=== PATIENT | female | born 1935 | race Caucasian/White ===

== ENCOUNTER 2020-06-16 13:22 | Outpatient (CLI) | payer MEDICARE, OTHER, SELFPAY ==
--- NOTE | 2020-06-16 13:29 | ECG_ITS ---
Measurements Intervals [place] Rate: 61 P: 43 [place]: 128 QRS: 24 QRSD: 109 T: 50 QT: 413 QTc: 419 Interpretive Statements SINUS RHYTHM DELAYED PRECORDIAL R/S TRANSITION BORDERLINE T WAVE ABNORMALITY- ANTERIOR LEADS BASELINE ARTIFACT- I, II, III, AVR, AVL, AVF, V1-V6 BORDERLINE ECG Electronically Signed On 06-16-2020 14:01:08 CDT by Davy Benton D.O.
[2020-06-16 13:55] LABS: Basophils Absolute Auto 0.1 K/mm3 (0.0-0.1); Basophils Percent Auto 0.8 % (0.2-1.2); Eosinophils Absolute Auto 0.1 K/mm3 (0-0.3); Eosinophils Percent Auto 1.7 % (0-4.4); Hematocrit 40.9 % (37.0-47.0); Immature Granulocyte Absolute 0.05 K/mm3 (0.00-0.031); Immature Granulocyte Percent A 0.7 % (0-0.5); Lymphocytes Absolute Auto 1.66 K/mm3 (0.9-3.2); Lymphocytes Percent Auto 23.4 % (18.3-44.2); Mean Corpuscular HGB Conc 31.8 g/dl (32-36); Mean Corpuscular Hemoglobin 30.8 pg (26-34); Mean Corpuscular Volume 96.9 fl (80-100); Mean Platelet Volume 9.8 fl (7.4-10.4); Monocytes Absolute Auto 0.8 K/mm3 (0.1-0.6); Monocytes Percent Auto 11.1 % (2.6-8.5); Neutrophils Absolute Auto 4.4 K/mm3 (1.3-6.7); Neutrophils Percent Auto 62.3 % (45.5-73.1); Platelet Count Result 240 k/mm3 (150-375); Red Blood Count 4.22 M/mm3 (4.2-5.4); Red Cell Distribution Width 13.5 % (11.5-14.5); White Blood Count 7.1 K/mm3 (4.5-10.0)
[2020-06-16 14:02] LABS: INR 0.9; Prothrombin Time 12.2 Seconds (11.1-14.7)
[2020-06-16 14:03] LABS: Partial Thromboplastin Time 27.6 SECONDS (22.3-36.8)
[2020-06-16 14:05] LABS: Alanine Aminotransferase 10 U/L (4-35); Albumin Level 3.9 g/dL (3.5-5.1); Alkaline Phosphatase 72 U/L (38-126); Anion Gap 2 mmol/L (8-16); Aspartate Amino Transferase 21 U/L (14-36); Bilirubin,Total 0.3 mg/dL (0.2-1.3); Blood Urea Nitrogen 20 mg/dL (7-17); Calcium 9.3 mg/dL (8.4-10.2); Carbon Dioxide 35 mmol/L (22-30); Chloride 104 mmol/L (98-107); Estimated Glomerular Filt Rate > 60; Glucose 100 mg/dL (65-105); Potassium 3.9 mmol/L (3.4-5.0); Sodium 141 mmol/L (137-145)
== END 2020-06-16 13:23 | disposition home or self-care (01) ==
PROVIDERS: PCP Internal Medicine; Visit Provider Urology
DX: N81.4 Uterovaginal prolapse, unspecified (principal); I10 Essential (primary) hypertension; Z01.818 Encounter for other preprocedural examination; R94.31 Abnormal electrocardiogram [ECG] [EKG]
CPT/HCPCS: 36415; 80053; 85025; 85610; 85730; 86850; 86900; 86901; 87086; 93005

== ENCOUNTER 2020-06-24 00:49 | Outpatient (CLI) | payer MEDICARE, OTHER, SELFPAY ==
[2020-06-25 03:00] LABS: SARS-CoV-2 RNA PCR Negative
== END 2020-06-24 00:50 | disposition home or self-care (01) ==
LOC: ANHCOVIDDT 00:49
PROVIDERS: PCP Internal Medicine; Visit Provider Urology
DX: Z01.812 Encounter for preprocedural laboratory examination (principal); Z20.828 Contact with and (suspected) exposure to other viral communicable diseases
CPT/HCPCS: 87635; C9803; U0003

== ENCOUNTER 2020-06-26 01:21 | Day surgery (SDC) | payer MEDICARE, OTHER, SELFPAY ==
[2020-06-12 14:20] VITALS: BMI 25.7
--- NOTE | 2020-06-21 11:00 | PM.IMHP ---
H&P: HPI History of Present Illness Date/Time: 06/21/20 11:00 Chief complaint: uterine prolapse Narrative: Soledad Parra is a 85 year old female with uterine prolpase Review of Systems Review of Systems: All systems reviewed & are unremarkable except as noted in HPI and below PMFSH Social History Social History Smoking packs per day: 1 Smoking cigarettes per day: 20.0 Years smoked: 17 Smoking pack-years: 17.00 Smoking status: Former smoker Tobacco type: cigarettes Smoking end date: 08/21/89 Spiritual care concerns: No Meds Home Medications and Allergies Home Medications Medication Instructions Recorded Confirmed Type cholecalciferol (vitamin D3) 25 mcg PO DAILY 06/12/20 06/12/20 History denosumab [Prolia] 60 mg SUBCUT [id number] 06/12/20 06/12/20 History levothyroxine 25 mcg PO QAM 06/12/20 06/12/20 History metoprolol succinate 25 mg PO QAM 06/12/20 06/12/20 History Allergies Allergy/AdvReac Type Severity Reaction Status Date / Time Quinolones Allergy Intermediate SENSITIVITY/SEVERE Verified 06/12/20 14:08 NAUSEA/VOMITING/DIARRHEA amlodipine Allergy Unknown UPSET Verified 06/12/20 14:09 STOMACH Exam Const: General: cooperative and healthy appearing HENMT: Head: normal to inspection Mouth: Yes Normal oral and palatal mucosa present Eyes: General: appearance normal, both eyes and all related structures Resp: Effort & Inspection: normal respiratory effort and able to speak in complete sentences : Bimanual exam- vagina & uterus: Uterus displaced (POP +5) Skin: General skin exam: normal color Assessment and Plan Assessment and plan (1) Uterine prolapse: Code(s): N81.4 - Uterovaginal prolapse, unspecified Status: Acute Assessment and Plan: Colpocleisis
--- NOTE | 2020-06-25 10:36 | P.PNAN_ITS ---
Anes - Initial Pre Proc Eval Procedure: Operation Date: 06/26/20 10:30 Proposed Procedures p Colpocleisis, Possible Urethral Sling - Camilo Mcneil MD Date/Time: 06/25/20 10:36 Surgeon: Camilo Mcneil MD Pre Op Diagnosis: uterine prolapse Patient Data Age: 85 Gender: F Height: 1.57 m Weight: 63.65 kg Allergies Allergy/AdvReac Type Severity Reaction Status Date / Time Quinolones Allergy Intermediate SENSITIVITY/SEVERE Verified 06/12/20 14:08 NAUSEA/VOMITING/DIARRHEA amlodipine Allergy Unknown UPSET Verified 06/12/20 14:09 STOMACH Home Medications Medication Instructions Recorded Confirmed Type cholecalciferol (vitamin D3) 25 mcg PO DAILY 06/12/20 06/12/20 History denosumab [Prolia] 60 mg SUBCUT [id number] 06/12/20 06/12/20 History levothyroxine 25 mcg PO QAM 06/12/20 06/12/20 History metoprolol succinate 25 mg PO QAM 06/12/20 06/12/20 History ECG: Date of Service: 06/16/20 Procedure(s): CA 12 lead EKG Accession Number(s): [id number] cc: ~ Measurements Intervals [place] Rate: 61 P: 43 DC: 128 QRS: 24 QRSD: 109 T: 50 QT: 413 QTc: 419 Interpretive Statements SINUS RHYTHM DELAYED PRECORDIAL R/S TRANSITION BORDERLINE T WAVE ABNORMALITY- ANTERIOR LEADS BASELINE ARTIFACT- I, II, III, AVR, AVL, AVF, V1-V6 BORDERLINE ECG Electronically Signed On 06-16-2020 14:01:08 CDT by Davy Benton D.O. Dictated By: Davy Benton DO 06/16/20 1407 Patient hx anesthesia problems: none Family hx anesthesia problems: none PMFSH Past Medical History Medical History HTN (hypertension) Hypothyroidism Osteoporosis Uterine prolapse Social History Social History Smoking packs per day: 1 Smoking cigarettes per day: 20.0 Years smoked: 17 Smoking pack-years: 17.00 Smoking status: Former smoker Tobacco type: cigarettes Smoking end date: 08/21/89 Living arrangements: with family Spiritual care concerns: No Anes - Eval Final PreProcedure Day of Procedure 06/25/20 10:36 Patient weight: normal Heart: regular rate and rhythm Lungs: clear to auscultation and normal air movement Airway: Mallampati scale class II Neurological: alert and oriented Last oral intake: >/= 8 hours ASA classification: II Emergent: no Anesthetic plan: proceed Anesthesia type and monitoring: general LMA and ETT Informed Consent: The patient's anesthetic plan and its attendant risks and benefits were discussed with the patient/family/POA. Questions were solicited and answers provided to the satisfaction of the patient/family/POA.
[2020-06-26] VITALS (8 sets, daily range): BP systolic 131–176; BP diastolic 59–97; PULSE 61–82; RESP 10–16; TEMP 36.1–36.3; O2SAT 92–100; BMI 24.6
--- NOTE | 2020-06-26 09:59 | PM.IMHP ---
H&P: HPI History of Present Illness Date/Time: 06/26/20 09:59 Chief complaint: uterine prolapse Narrative: Soledad Parra is a 85 year old female who is admitted for cup of cholecystitis with Dr. Mcneil. Ultrasound showed mild endometrial thickening for a woman of this age at 8mm. She had no bleeding or any symptoms related to this mildly thickened endometrium. No discussed procedure with the patient and she agreed to proceed Review of Systems Review of Systems: All systems reviewed & are unremarkable except as noted in HPI and below PMFSH Past Medical History Medical History HTN (hypertension) Hypothyroidism Osteoporosis Uterine prolapse Social History Social History Smoking packs per day: 1 Smoking cigarettes per day: 20.0 Years smoked: 17 Smoking pack-years: 17.00 Smoking status: Former smoker Tobacco type: cigarettes Smoking end date: 08/21/89 Living arrangements: with family Spiritual care concerns: No Meds Home Medications and Allergies Home Medications Medication Instructions Recorded Confirmed Type cholecalciferol (vitamin D3) 25 mcg PO DAILY 06/12/20 06/12/20 History denosumab [Prolia] 60 mg SUBCUT [id number] 06/12/20 06/12/20 History levothyroxine 25 mcg PO QAM 06/12/20 06/12/20 History metoprolol succinate 25 mg PO QAM 06/12/20 06/12/20 History Allergies Allergy/AdvReac Type Severity Reaction Status Date / Time Quinolones Allergy Intermediate SENSITIVITY/SEVERE Verified 06/12/20 14:08 NAUSEA/VOMITING/DIARRHEA amlodipine Allergy Unknown UPSET Verified 06/12/20 14:09 STOMACH Exam Const: General: no acute distress Eyes: General: appearance normal, both eyes and all related structures Neck: Neck: supple and no JVD Thyroid: thyroid normal Resp: Effort & Inspection: normal respiratory effort Auscultation: clear to auscultation bilaterally Cardio: Rate: regular rate Rhythm: regular rhythm GI: Inspection: non-distended GI Palp: Yes Soft to palpation, No Tenderness to palpation present (GI) and No Guarding due to palpation present (GI) Auscultation: normal bowel sounds : General: Yes bladder normal to palpation External Female Exam: normal external appearance Speculum Exam - Vagina: normal vaginal discharge and No vaginal bleeding Speculum Exam - Cervix: nontender Bimanual exam- vagina & uterus: bladder normal to palpation and No Cervical tenderness present OB/external & speculum: No vaginal bleeding Skin: General skin exam: no rashes or lesions noted Extrem: General: normal to inspection and no edema Psych: Mental Status: mental status grossly normal Affect: normal affect Assessment and Plan Additional Plan impression: Uterine prolapse with ultrasound findings consistent with mildly thickened endometrium Plan hysteroscopy dilatation curettage prior to colpoclieses
--- NOTE | 2020-06-26 10:39 | WPDHPUPDATE1 ---
History and Physical Update Update Date/Time: 06/26/20 10:39 History and Physical has been reviewed, including an updated exam of the patient. There are NO changes in the patient's condition. Risks, benefits, and alternatives have been discussed and questions answered. Patient agrees to proceed with procedure.
--- NOTE | 2020-06-26 10:40 | WPDHPUPDATE1 ---
History and Physical Update Update Date/Time: 06/26/20 10:40 History and Physical has been reviewed, including an updated exam of the patient. There are NO changes in the patient's condition. Risks, benefits, and alternatives have been discussed and questions answered. Patient agrees to proceed with procedure.
[2020-06-26] MEDS: LACTATED RINGERS 1,000 ML 30 ML IV CONT (10:58)
[2020-06-26] MEDS: ceFAZolin 2 GM/D5W 50 ML 2 GM/50 ML BAG IVPB (11:06)
--- NOTE | 2020-06-26 11:30 | PM.PROC ---
Procedure Note - Detailed Date of procedure: 06/26/20 Pre-op diagnosis: uterine prolapse Surgeon: Randall Sinha MD postop diagnosis: Uterine prolapse/ thickened endometrium on ultrasound Procedure: Hysteroscopy, dilatation curettage EBL: 1Cc Findings: Complete procidentia. Uterus sounded to 7cm. Atrophic endometrium as expected for a person of this age Anesthesia: General endotracheal Complications: None. This procedure was done prior to colpocleisis by Dr. Mcneil Description of procedure: Patient was prepped and draped in normal sterile fashion placed in dorsal lithotomy position. Under an excellent general endotracheal anesthesia weighted speculum was placed in posterior fornix vagina. Anterior lip of the cervix was grasped with a tenaculum. The uterus sounded to 7cm. Serial dilatation with fragmented dilators performed. Passage of the 5mm visualizing hysteroscope was undertaken. Each fallopian tube os could be seen. Benign atrophic endometrium as expected for a woman of this age was seen. Uterus was scraped over the entire 360? returning minimal to no tissue. Dr. Mcneil proceeded from here with his procedure. There were no complications up to this point
[2020-06-26] MEDS: KETOROLAC 30 MG/ML VIAL (*BKC) 15 MG IV PUSH (12:13)
--- NOTE | 2020-06-26 12:13 | PM.PROC ---
Procedure Note - Detailed Date of procedure: 06/26/20 Pre-op diagnosis: uterine prolapse Uterine prolapse Female perineal laxity Post-op diagnosis: same Procedure performed: Left [place] colpocleisis perineoplasty Description of procedure: Anesthesia: General She understands the risks of bleeding, infection, damage to surrounding organs, damage to the urinary tract, postoperative voiding dysfunction including incontinence and retention, inability to have penetrative intercourse. She agrees to proceed She was correctly identified and informed consent obtained. She is by the operating room. She was given general anesthesia. She was placed in the dorsal lithotomy position. She was prepped and draped in a sterile fashion. She was given appropriate perioperative antibiotics. Time-out performed. Dr. Holbrook performed a hysteroscopy D& C. There was no significant tissue. Please see his operative report for further details.The [place] retractors placed. A [place] catheter was placed. I maria victoira out 2 rectangular shaped areas on the anterior and posterior vaginal wall. I then tied the posterior vaginal wall. I removed the area of mucosa off the posterior vaginal wall. I then repeated this on the anterior vaginal wall. I took great care not to injure the underlying structures. I then performed a [place] colpocleisis. I left a drainage tunnels at the 3 and 9 o'clock position. I imbricated reduce the prolapse with 0 Vicryl sutures. I then closed the mucosa to mucosa with interrupted 0 Vicryl suture. There was excellent support of the prolapse. I then performed cystoscopy. The bladder was examined. There is no surgical artifact. There was no bladder tumors. Ureteral orifices were normal. The ureteral orifices were seen to excrete clear yellow urine. I then turned my attention towards the perineum. There is significant perineal laxity. I maria victoria out a nati-shaped area of skin on the perineum. I removed this area skin after anesthetizing it. I then performed a perineoplasty with serial 0 Vicryl sutures. I then used a 2 Vicryl to close the mucosa leading to excellent perineal support. I assured hemostasis. The patient is awakened and transferred to the PACU in stable condition. Implants: None Anesthesia: GETA Surgeon: Camilo Mcneil MD Drains: No Packing: No Pathology: none sent Complications: No immediate complications Condition: stable Disposition: PACU
[2020-06-26] MEDS: fentaNYL CITRATE INJ (*CRX) 100 MCG/2 ML VIAL 25 MCG IV PUSH ×2 (12:39→12:47)
== END 2020-06-26 14:15 | disposition home or self-care (01) ==
PROVIDERS: Obstetrics & Gynecology; PCP Internal Medicine; Visit Provider Urology
PROC: (CPT 57120; principal; 2020-06-26 10:30)
PROC: 0U5B8ZZ Destruction of Endometrium, Via Natural or Artificial Opening Endoscopic (ICD-10-PCS; CPT 58563; 2020-06-26 10:30)
DX: N81.4 Uterovaginal prolapse, unspecified (principal); I10 Essential (primary) hypertension; E03.9 Hypothyroidism, unspecified; M81.0 Age-related osteoporosis without current pathological fracture; Z87.891 Personal history of nicotine dependence
CPT/HCPCS: 57120; 58558; 88305; A9270; J0690; J1885; J3010; J7030; J7120